=== PATIENT | male | born 1940 | race Two or more races ===

== ENCOUNTER 2018-08-27 15:21 | Emergency (ER) | payer OTHER ==
[~2018-08-27] VITALS: Ht 167.6 cm; Wt 92.5 kg
[2018-08-27] MEDS ORDERED: WELLBUTRIN XL300 MG PO (15:46)
[2018-08-27] MEDS ORDERED: CLONAZEPAM0.5 MG PO (15:46)
[2018-08-27] MEDS ORDERED: CIALIS20 MG PO (15:49)
[2018-08-27] MEDS ORDERED: METOPROLOL SUCC25 MG PO (15:49)
[2018-08-27] MEDS ORDERED: DEPO-TESTO100 MG/1 M IM (15:49)
== END 2018-08-27 22:26 | disposition home or self-care (01) ==
LOC: ER 15:21
DX: J11.1 Influenza due to unidentified influenza virus with other respiratory manifestations (principal); R06.6 Hiccough; R51 Headache; J18.9 Pneumonia, unspecified organism

== ENCOUNTER 2018-09-18 20:03 | Emergency (ER) | payer OTHER ==
[~2018-09-18] VITALS: Ht 165.1 cm; Wt 72.6 kg
[~2018-09-18 20:03] MED LIST: CIALIS20 MG PO; CLONAZEPAM0.5 MG PO; DEPO-TESTO100 MG/1 M IM; METOPROLOL SUCC25 MG PO; WELLBUTRIN XL300 MG PO
== END 2018-09-18 22:50 | disposition home or self-care (01) ==
LOC: ER 20:03
DX: R41.0 Disorientation, unspecified (principal); T42.8X5A Adverse effect of antiparkinsonism drugs and other central muscle-tone depressants, initial encounter

== ENCOUNTER → 2020-10-15 | Emergency (ER) | payer OTHER ==
[~2020-10-15] VITALS: Ht 167.6 cm; Wt 88.0 kg
== END | disposition designated cancer center or children's hospital (05) ==
LOC: ER 20:55
DX: S06.6X0A Traumatic subarachnoid hemorrhage without loss of consciousness, initial encounter (principal); S01.82XA Laceration with foreign body of other part of head, initial encounter; W18.09XA Striking against other object with subsequent fall, initial encounter; Y93.89 Activity, other specified; Y92.511 Restaurant or cafe as the place of occurrence of the external cause; Y99.8 Other external cause status

== ENCOUNTER 2022-05-15 11:36 | Inpatient (IN) | payer OTHER ==
[~2022-05-15] VITALS: Ht 152.4 cm; Wt 69.9 kg
[2022-05-15] MEDS ORDERED: TAMS0.4C PO (11:44)
[2022-05-15] MEDS ORDERED: FUROSEMIDE20 MG (11:44)
[2022-05-15] MEDS ORDERED: RAMIPRIL1.25 MG (11:44)
[2022-05-15] MEDS ORDERED: PROGESTERO50 MG/1 ML (11:45)
[2022-05-20] MEDS ORDERED: TADALAFIL5 MG (13:41)
[2022-05-20] MEDS ORDERED: ESOMEPRAZOLE MA20 MG (13:41)
[2022-05-20] MEDS ORDERED: ST. JOSEPH ASPI81 M2 (13:41)
[2022-05-20] MEDS ORDERED: ALPRAZOLAM0.5 MG (13:41)
[2022-06-03] MEDS ORDERED: TAMS0.4C PO (15:43)
[2022-06-03] MEDS ORDERED: ELIQUIS2.5 MG PO (15:44)
[2022-06-03] MEDS ORDERED: AMIODARONE HCL200 MG PO (15:44)
[2022-06-03] MEDS ORDERED: ISORDIL10 MG PO (15:45)
[2022-06-03] MEDS ORDERED: SPIRONOLACTONE25 MG PO (15:46)
[2022-06-03] MEDS ORDERED: HYDRALAZINE HCL25 MG PO (15:46)
[2022-06-03] MEDS ORDERED: FUROSEMIDE20 MG PO (15:47)
[2022-06-03] MEDS ORDERED: B COMPLEX1 EACH PO (15:48)
[2022-06-03] MEDS ORDERED: CLONAZEPAM0.5 MG PO (15:49)
[2022-06-03] MEDS ORDERED: TOPROL XL25 M1 PO (15:49)
== END 2022-06-03 17:20 | disposition home or self-care (01) | DRG 682 ==
LOC: ER 11:36 → ICU-2 05-16 10:16 → MEDI 05-16 10:16 → ICU 05-18 03:35 → MEDI 05-30 19:24
PROVIDERS: ADMIT Internal Medicine; ATTEND Internal Medicine
PROC: B24BZZZ Ultrasonography of Heart with Aorta (ICD-10-PCS; 2022-05-16)
PROC: 0W9930Z Drainage of Right Pleural Cavity with Drainage Device, Percutaneous Approach (ICD-10-PCS; principal; 2022-05-21)
PROC: 5A2204Z Restoration of Cardiac Rhythm, Single (ICD-10-PCS; 2022-05-28)
DX: N17.9 Acute kidney failure, unspecified (principal); I13.0 Hypertensive heart and chronic kidney disease with heart failure and stage 1 through stage 4 chronic kidney disease, or unspecified chronic kidney disease; I50.21 Acute systolic (congestive) heart failure; I43 Cardiomyopathy in diseases classified elsewhere; I50.84 End stage heart failure; I27.22 Pulmonary hypertension due to left heart disease; I08.3 Combined rheumatic disorders of mitral, aortic and tricuspid valves; I48.0 Paroxysmal atrial fibrillation; N18.9 Chronic kidney disease, unspecified; E87.5 Hyperkalemia; E86.9 Volume depletion, unspecified; N40.0 Benign prostatic hyperplasia without lower urinary tract symptoms; C61 Malignant neoplasm of prostate; F10.20 Alcohol dependence, uncomplicated

== ENCOUNTER 2022-07-15 07:45 | Outpatient (CLI) | payer OTHER ==
[~2022-07-15 07:45] MED LIST changes: +ALPRAZOLAM0.5 MG; +AMIODARONE HCL200 MG PO; +B COMPLEX1 EACH PO; +ELIQUIS2.5 MG PO; +ESOMEPRAZOLE MA20 MG; +FUROSEMIDE20 MG; +FUROSEMIDE20 MG PO; +HYDRALAZINE HCL25 MG PO; +ISORDIL10 MG PO; +PROGESTERO50 MG/1 ML; +RAMIPRIL1.25 MG; +SPIRONOLACTONE25 MG PO; +ST. JOSEPH ASPI81 M2; +TADALAFIL5 MG; +TAMS0.4C PO; +TOPROL XL25 M1 PO
== END 2022-07-15 07:51 | disposition home or self-care (01) ==
LOC: NUCLEAR 07:45
PROVIDERS: ATTEND Internal Medicine
DX: I25.9 Chronic ischemic heart disease, unspecified (principal); Z88.0 Allergy status to penicillin; Z88.8 Allergy status to other drugs, medicaments and biological substances
CPT/HCPCS: 78452; 93017; A9500; J0153

== ENCOUNTER 2022-11-12 08:52 | Outpatient (CLI) | payer OTHER | END 2022-11-12 09:15 | disposition home or self-care (01) | LOC: SONOGRAMA 08:52 | DX: N18.31 Chronic kidney disease, stage 3a (principal) ==

== ENCOUNTER 2023-01-13 10:01 | Outpatient (CLI) | payer OTHER | END 2023-01-13 10:30 | disposition home or self-care (01) | LOC: RAD 10:01 | PROVIDERS: ATTEND Internal Medicine | DX: M54.40 Lumbago with sciatica, unspecified side (principal); I48.91 Unspecified atrial fibrillation; I50.20 Unspecified systolic (congestive) heart failure; R09.02 Hypoxemia ==

== ENCOUNTER → 2023-04-30 | Outpatient (CLI) | payer OTHER | END | disposition home or self-care (01) | LOC: RAD 07:39 | PROVIDERS: ATTEND Orthopaedic Surgery Orthopaedic Trauma | DX: M25.571 Pain in right ankle and joints of right foot (principal) ==

== ENCOUNTER 2023-06-04 17:33 | Emergency (ER) | payer OTHER ==
[~2023-06-04] VITALS: Ht 172.7 cm; Wt 84.4 kg
[2023-06-04] MEDS ORDERED: UROXATRAL10 MG PO (18:04)
== END 2023-06-04 21:09 | disposition home or self-care (01) ==
LOC: ER 17:33
PROVIDERS: General Practice
DX: N39.0 Urinary tract infection, site not specified (principal); Z88.0 Allergy status to penicillin; Z88.8 Allergy status to other drugs, medicaments and biological substances
CPT/HCPCS: 36415; 96365; 99282; J0744; J3490

== ENCOUNTER 2023-08-22 16:52 | Emergency (ER) | payer OTHER ==
[~2023-08-22] VITALS: Ht 167.6 cm; Wt 71.7 kg
[~2023-08-22 16:52] MED LIST changes: +UROXATRAL10 MG PO
[2023-08-22] MEDS ORDERED: SEROQUEL25 MG PO (17:17)
[2023-08-22] MEDS ORDERED: CORTIZONE 1028 GM TP (17:18)
[2023-08-22 19:20] LABS: HEMATOCRIT 33.6 % (39.0-48.0); HEMOGLOBIN 11.5 g/dL (13-16.00); MEAN CELL VOLUME 90.2 fL (80.0-100.00); MEAN CORPUSCULAR HEMOGLOBIN 30.9 pg (27.00-32.0); MEAN CORPUSCULAR HGB CONC 34.3 g/dl (32.0-36.0); PLATELET COUNT 178 K/uL (150-450); RED BLOOD COUNT 3.72 M/uL (4.00-6.00); RED CELL DISTRIBUTION WIDTH 14.6 % (11.5-14.5)
[2023-08-22 19:21] LABS: PH,URINE 6.5 (5.0-8.0); URINE APPEARANCE Clear; URINE BILIRRUBIN Negative (NEGATIVE); URINE BLOOD Negative; URINE COLOR Dark Yellow; URINE LEUKOCYTE Negative; URINE NITRATE Negative; URINE PROTEIN Negative (NEGATIVE)
[2023-08-22 19:25] LABS: URINE BACTERIA 26.4 uL (0.0-1933)
[2023-08-22 19:32] LABS: URINE EPITHELIAL CELLS 0.4 uL (0.0-38.8); URINE GLUCOSE >=1000 MG/DL (NEGATIVE); URINE RBC 1.5 uL (0.0-20.8); URINE WBC 1.3 uL (0.0-23.2)
[2023-08-22 19:37] LABS: INR 1.14; PARTIAL THROMBOPLASTIN TIME 28.1 SECONDS (22.0-34.0); PROTHROMBIN TIME 11.9 SECONDS (9.0-11.5)
[2023-08-22 20:03] LABS: ALBUMIN 2.8 gm/dL (3.4-5.0); BILIRUBIN TOTAL 0.24 mg/dL (0.3-1.2); BILIRUBIN,CONJUGATED 0.11 mg/dL (0.0-0.2); BILIRUBIN,UNCONJUGATED 0.13 mg/dL (0.0-0.6); CALCIUM 8.3 mg/dL (8.5-10.1); CREATININE SERUM 2.48 mg/dL (0.70-1.30); GFR 25.14; POTASSIUM 4.54 mEq/L (3.5-5.1); TOTAL PROTEIN 5.9 gm/dL (6.4-8.2)
== END 2023-08-22 23:44 | disposition home or self-care (01) ==
LOC: ER 16:52
PROVIDERS: General Practice
DX: I67.82 Cerebral ischemia (principal); R41.82 Altered mental status, unspecified; I10 Essential (primary) hypertension; I50.9 Heart failure, unspecified; Z88.0 Allergy status to penicillin; Z88.8 Allergy status to other drugs, medicaments and biological substances
CPT/HCPCS: 36415; 70450; 71045; 93005; 96365; 99284; J3490

== ENCOUNTER 2023-10-24 08:37 | Outpatient (CLI) | payer OTHER ==
[~2023-10-24 08:37] MED LIST changes: +CORTIZONE 1028 GM TP; +SEROQUEL25 MG PO
== END 2023-10-24 09:00 | disposition home or self-care (01) ==
LOC: MRI 08:37
PROVIDERS: ATTEND Psychiatry & Neurology Neurology
DX: I67.9 Cerebrovascular disease, unspecified (principal)
CPT/HCPCS: 70551

== ENCOUNTER 2023-10-27 08:27 | Outpatient (CLI) | payer OTHER | END 2023-10-27 08:28 | disposition home or self-care (01) | LOC: NUCLEAR 08:27 | PROVIDERS: ATTEND Internal Medicine | DX: I50.30 Unspecified diastolic (congestive) heart failure (principal); I10 Essential (primary) hypertension ==

== ENCOUNTER → 2024-10-26 | Outpatient (CLI) | payer OTHER | END | disposition home or self-care (01) | LOC: RAD 09:02 | PROVIDERS: ATTEND Internal Medicine Nephrology | DX: J81.0 Acute pulmonary edema (principal) ==

== ENCOUNTER 2025-03-17 09:53 | Outpatient (CLI) | payer OTHER | END 2025-03-17 15:10 | disposition home or self-care (01) | LOC: RAD 09:53 | PROVIDERS: ATTEND General Practice | DX: S22.42XA Multiple fractures of ribs, left side, initial encounter for closed fracture (principal); M25.512 Pain in left shoulder ==

== ENCOUNTER 2025-03-22 07:52 | Outpatient (CLI) | payer OTHER | END 2025-03-22 07:55 | disposition home or self-care (01) | LOC: RAD 07:52 | DX: I50.9 Heart failure, unspecified (principal); J81.0 Acute pulmonary edema; R05.9 Cough, unspecified ==

== ENCOUNTER → 2025-03-24 08:18 | Outpatient (CLI) | payer OTHER | END | disposition home or self-care (01) | LOC: NUCLEAR 08:18 | PROVIDERS: ATTEND Internal Medicine | DX: I50.20 Unspecified systolic (congestive) heart failure (principal); I10 Essential (primary) hypertension ==

== ENCOUNTER 2025-08-15 07:18 | Outpatient (CLI) | payer OTHER | END 2025-08-15 07:19 | disposition home or self-care (01) | LOC: NUCLEAR 07:18 | PROVIDERS: ATTEND Internal Medicine | DX: I20.9 Angina pectoris, unspecified (principal) | CPT/HCPCS: 78452; 93017; A9500; J0153 ==